=== PATIENT | female | born 1990 | race Hispanic/Latino ===

== ENCOUNTER 2025-04-13 11:36 | Emergency (ER) | payer OTHER, SELFPAY ==
[2025-04-13 11:42] VITALS: BP 123/77; PULSE 98; RESP 20; TEMP 36.4; O2SAT 97; BMI 33.3
--- NOTE | 2025-04-13 11:52 | DI.CT.S_ITS ---
PROCEDURE: CT ABDOMEN PELVIS WO CON INDICATIONS: R flank pain TECHNIQUE: CT of the abdomen and pelvis was obtained without intravenous contrast. Coronal and sagittal reformats were performed. For radiation dose reduction, the following was used: automated exposure control, adjustment of mA and/or kV according to patient size. COMPARISON: [facility], CT, CT KUB, 12/12/2023, 0:10. FINDINGS: Image quality: Diagnostic. Lower Chest: No significant findings. ABDOMEN: Liver: No contour-deforming mass. Hepatic steatosis. Gallbladder: No radiopaque gallstones or wall thickening. Biliary ducts: No biliary dilation. Pancreas: No ductal dilation. Spleen: Size is within normal limits. Adrenal Glands: No adrenal nodules. Kidneys and Ureters: Bilateral renal atrophy. Atrophic appearing right pelvic transplant. Small stone within the right kidney, unchanged. 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 Punctate nonobstructing stone. No evidence of obstruction. Stomach and Bowel: Normal colonic caliber, without significant wall thickening. The appendix is normal. Peritoneum: No abnormal intraperitoneal fluid. No free air. Ventral Wall: No significant hernia. Abdominal Nodes: No retroperitoneal or mesenteric adenopathy by size criteria. Vessels: Aorta and inferior vena cava are normal in size. PELVIS: Pelvic Organs: Unremarkable. Bladder: Unremarkable. Pelvic Nodes: No enlarged lymph nodes. Miscellaneous: No inguinal hernias are seen. Bones: No aggressive osseous abnormality. Stable appearance of right iliac lucent lesion. IMPRESSION: 1. Atrophied [place] and right transplant kidneys, stable. 2. Calcification in the right pelvic transplanted kidney likely reflecting small stone without hydronephrosis, unchanged from comparison and 2023. 3. Transplanted left pelvic kidney with punctate stone without hydronephrosis. 4. Hepatic steatosis Dictated by: Raymond Merritt M.D. on 04/13/2025 at 11:40 Approved by: Raymond Merritt M.D. on 04/13/2025 at 11:49
[2025-04-13 12:06] LABS: Appearance Urine UA CLEAR; Bilirubin Urine UA NEGATIVE (NEGATIVE); Color Urine UA YELLOW; Glucose Urine UA 3+ g/dL (Negative); Ketones Urine UA NEGATIVE (NEGATIVE); Leukocyte Esterase Urine UA NEGATIVE (NEGATIVE); Nitrite Urine UA NEGATIVE (Negative); Occult Blood Urine UA NEGATIVE (Negative); Protein Urine UA NEGATIVE (Negative); Specific Gravity Urine UA 1.020 (1.000-1.035); Urobilinogen Urine UA 0.2 E.U./dL (0.2)
[2025-04-13 12:14] LABS: Culture Indicated Urine Cult Not Indicated; pH Urine UA 6.0 (4.5-8.0)
[2025-04-13 12:17] LABS: Add Manual Diff / Slide Review NO; Hematocrit 42.2 % (36-46); Hemoglobin 15.1 g/dL (12.0-16.0); Lymphocytes Absolute Auto 2800 /uL (1100-4500); Mean Corpuscular HGB Conc 35.9 % (30-36); Mean Corpuscular Hemoglobin 32.5 PG (26-34); Mean Corpuscular Volume 90.5 fL (80-100); Platelet Count 203 X10^3/uL (150-400)
[2025-04-13 12:25] LABS: Base Excess VBG -2.0 mmol/L (0-4); HCO3 VBG 23 mmol/L (24-28); Oxygen Saturation VBG 67 % (70-75); PCO2 VBG 40.3 mmHg (45-50); PO2 VBG 36 mmHg (35-45); Total CO2 VBG 22 mmol/L (24-29); pH VBG 7.37 (7.33-7.43)
[2025-04-13] MEDS: SODIUM CHLORIDE 0.9% 1,000 ML 1000 ML IV (12:26)
[2025-04-13 12:29] LABS: Alanine Aminotransferase 98 IU/L (<35); Albumin 4.0 g/dL (3.5-5.0); Albumin Globulin Ratio 1.3 (1.0-2.8); Alkaline Phosphatase 97 U/L (38-126); Blood Urea Nitrogen 15 mg/dL (7-17); Calcium 9.4 mg/dL (8.4-10.2); Carbon Dioxide 24 mmol/L (22-32); Chloride 97 mmol/L (98-107); Estimated Glomerular Filt Rate > 60 mL/min (>60); Globulin 3.1 g/dL (1.7-4.1); HEMOLYSIS < 15 (0-50); Lipase 78 U/L (23-300); Potassium 3.9 mmol/L (3.4-5.1); Sodium 132 mmol/L (137-145); Total Protein 7.1 g/dL (6.3-8.2)
[2025-04-13 12:33] LABS: Glucose 489 mg/dL (70-99)
[2025-04-13 13:19] LABS: Ketones (Beta-Hydroxybutyrate) 0.10 mmol/L (<0.27)
[2025-04-13 13:43] VITALS: BP 141/96; PULSE 90; RESP 16; O2SAT 97
--- NOTE | 2025-04-13 15:12 | ED_ITS ---
HPI - General Adult General Chief complaint: Abdominal Pain Stated complaint: Severe R Abd Pain Time Seen by Provider: 04/13/25 11:42 Source: patient Mode of arrival: Ambulatory History of Present Illness HPI narrative: 4-year-old woman with a history of renal failure post 2 transplants, history of seizure, hypertension or diabetes but she is too afraid of needles to actually check any blood sugars who presents with right flank pain. She isn't sure which side her functioning transplanted kidney is on currently. She has not been having any dysuria or fevers. Pain has been intermittently present for the last 4 days. She has a left upper extremity fistula for dialysis use that is not currently being used. He is not complaining of shortness of breath no lower extremity edema, no palpitations or chest pain Related Data Allergies Allergy/AdvReac Type Severity Reaction Status Date / Time No Known Allergies Allergy Mild Verified 04/13/25 11:43 Review of Systems Review of Systems Narrative: Pertinent positive and negative findings as per HPI Patient History Medical History (Updated 04/13/25 @ 16:19 by Elvira Serrano MD) Hypertension Diabetes Renal failure Surgical History (Updated 04/13/25 @ 15:44 by Elvira Serrano MD) Renal transplant, status post Smoking Status: Never smoker Exam Initial Vital Signs Initial Vital Signs: Vital Signs Temperature 97.6 F 04/13/25 11:42 Pulse Rate 98 H 04/13/25 11:42 Respiratory Rate 20 04/13/25 11:42 Blood Pressure 123/77 04/13/25 11:42 Pulse Oximetry 97 04/13/25 11:42 Oxygen Delivery Method Room Air 04/13/25 11:42 General: Healthy appearing, in no acute distress. Able to give a complete and coherent history. Well-nourished well-developed HEENT: Moist mucous membranes, normal sclera with reactive pupils, Respiratory: Lungs are clear to auscultation, no wheezing no rales no rhonchi. Full and symmetrical air movement Cardiac: Regular rate and rhythm no murmurs no bruits Abdomen: Soft, no reproducible pain. Abdomen is nontender, no trans abnormalities the suprapubic tenderness Skin: Warm and dry, no rashes Neurologic: Grossly neurologically intact with no obvious asymmetries or abnormalities Extremities: No trauma, well perfused Psych: Cooperative, appropriate insight and affect Course Orders Ordered: ED Orders 04/13/25 11:52 CT abdomen pelvis wo con Stat 04/13/25 11:55 Urinalysis and Microscopic Stat 04/13/25 11:59 Venous Blood Gas STAT 04/13/25 12:08 Complete Blood Count AUTO DIFF Stat Comprehensive Metabolic Panel Stat Ketones (Beta-Hydroxybutyrate) Stat Lipase Stat 04/13/25 12:21 Venous Blood Gas Routine Discontinued Medications Sodium Chloride (Normal Saline 0.9%) 1,000 mls @ 1,000 mls/hr IV BOLUS ONE Stop: 04/13/25 13:12 Last Infusion: 04/13/25 13:36 Dose: Infused Documented By: Admin: 04/13/25 12:26 Dose: 1,000 mls/hr Documented By: YECENIA Vital Signs Vital signs: Vital Signs - 8 hr 04/13/25 11:42 04/13/25 13:43 04/13/25 15:36 Temperature 97.6 F Pulse Rate 98 H 90 88 Respiratory Rate 20 16 16 Blood Pressure 123/77 141/96 H 135/96 H Pulse Oximetry 97 97 98 Oxygen Delivery Method Room Air Room Air Room Air Medical Decision Making Lab Data 04/13/25 12:08 04/13/25 12:08 Labs: Lab Results 04/13/25 04/13/25 04/13/25 Range/Units 11:55 12:08 12:21 WBC 8.1 (4.5-11.0) X10^3/uL RBC 4.67 (4.0-5.2) X10^6/uL Hgb 15.1 (12.0-16.0) g/dL Hct 42.2 (36-46) % MCV 90.5 (80-100) fL MCH 32.5 (26-34) PG MCHC 35.9 (30-36) % RDW 12.6 (11.6-14.8) % Plt Count 203 (150-400) X10^3/uL Neut % (Auto) 52.6 (50-75) % Lymph % (Auto) 35.0 (25-40) % [place] % (Auto) 8.0 (3-14) % Eos % (Auto) 3.2 (2-4) % Baso % (Auto) 1.2 (0-2) % Neut # (Auto) 4300 (1896-6218) /uL Lymph # (Auto) 2800 (5928-3537) /uL [place] # (Auto) 600 (0-900) /uL Eos # (Auto) 300 (0-450) /uL Baso # (Auto) 100 (0-100) /uL VBG pH 7.37 (7.33-7.43) VBG pCO2 40.3 L (45-50) mmHg VBG pO2 36 (35-45) mmHg VBG HCO3 23 L (24-28) mmol/L VBG Total CO2 22 L (24-29) mmol/L VBG O2 Saturation 67 L (70-75) % VBG Base Excess -2.0 L (0-4) mmol/L FiO2 % 21.0 % % Sodium 132 L (137-145) mmol/L Potassium 3.9 (3.4-5.1) mmol/L Chloride 97 L (98-107) mmol/L Carbon Dioxide 24 (22-32) mmol/L BUN 15 (7-17) mg/dL Creatinine 0.82 (0.52-1.04) mg/dL Estimated GFR > 60 (>60) mL/min BUN/Creatinine Ratio 18.3 (6-22) Glucose 489 H* (70-99) mg/dL POC Whole Bld Glucose (70-99) mg/dL Calcium 9.4 (8.4-10.2) mg/dL Total Bilirubin 0.7 (0.2-1.3) mg/dL AST 59 H (14-36) IU/L ALT 98 H (<35) IU/L Alkaline Phosphatase 97 (38-126) U/L Total Protein 7.1 (6.3-8.2) g/dL Albumin 4.0 (3.5-5.0) g/dL Globulin 3.1 (1.7-4.1) g/dL Albumin/Globulin Ratio 1.3 (1.0-2.8) Lipase 78 (23-300) U/L Urine Color Yellow Urine Appearance Clear Urine pH 6.0 (4.5-8.0) Ur Specific [place] 1.020 (1.000-1.035) Urine Protein Negative (Negative) Urine Glucose (UA) 3+ H (Negative) g/dL Urine Ketones Negative (NEGATIVE) Urine Occult Blood Negative (Negative) Urine Nitrate Negative (Negative) Urine Bilirubin Negative (NEGATIVE) Urine Urobilinogen 0.2 (0.2) E.U./dL Ur Leukocyte Esterase Negative (NEGATIVE) Urine RBC None seen (0-5/HPF) Urine WBC 0-1/hpf (0-5/HPF) Ur Squamous Epith Cells 1-5 /hpf (0-5/HPF) Urine Bacteria None seen (None) Ur Culture Indicated? Cult not indicated Vol Urine Centrifuged 10ml (spun) Ketones 0.10 (<0.27) mmol/L 04/13/25 Range/Units 13:31 WBC (4.5-11.0) X10^3/uL RBC (4.0-5.2) X10^6/uL Hgb (12.0-16.0) g/dL Hct (36-46) % MCV (80-100) fL MCH (26-34) PG MCHC (30-36) % RDW (11.6-14.8) % Plt Count (150-400) X10^3/uL Neut % (Auto) (50-75) % Lymph % (Auto) (25-40) % [place] % (Auto) (3-14) % Eos % (Auto) (2-4) % Baso % (Auto) (0-2) % Neut # (Auto) (3342-9020) /uL Lymph # (Auto) (1021-4445) /uL [place] # (Auto) (0-900) /uL Eos # (Auto) (0-450) /uL Baso # (Auto) (0-100) /uL VBG pH (7.33-7.43) VBG pCO2 (45-50) mmHg VBG pO2 (35-45) mmHg VBG HCO3 (24-28) mmol/L VBG Total CO2 (24-29) mmol/L VBG O2 Saturation (70-75) % VBG Base Excess (0-4) mmol/L FiO2 % % Sodium (137-145) mmol/L Potassium (3.4-5.1) mmol/L Chloride (98-107) mmol/L Carbon Dioxide (22-32) mmol/L BUN (7-17) mg/dL Creatinine (0.52-1.04) mg/dL Estimated GFR (>60) mL/min BUN/Creatinine Ratio (6-22) Glucose (70-99) mg/dL POC Whole Bld Glucose 383 H (70-99) mg/dL Calcium (8.4-10.2) mg/dL Total Bilirubin (0.2-1.3) mg/dL AST (14-36) IU/L ALT (<35) IU/L Alkaline Phosphatase (38-126) U/L Total Protein (6.3-8.2) g/dL Albumin (3.5-5.0) g/dL Globulin (1.7-4.1) g/dL Albumin/Globulin Ratio (1.0-2.8) Lipase (23-300) U/L Urine Color Urine Appearance Urine pH (4.5-8.0) Ur Specific [place] (1.000-1.035) Urine Protein (Negative) Urine Glucose (UA) (Negative) g/dL Urine Ketones (NEGATIVE) Urine Occult Blood (Negative) Urine Nitrate (Negative) Urine Bilirubin (NEGATIVE) Urine Urobilinogen (0.2) E.U./dL Ur Leukocyte Esterase (NEGATIVE) Urine RBC (0-5/HPF) Urine WBC (0-5/HPF) Ur Squamous Epith Cells (0-5/HPF) Urine Bacteria (None) Ur Culture Indicated? Vol Urine Centrifuged Ketones (<0.27) mmol/L Point of Care Testing Test Results Negative Glucose POC 346 Point of care testing: Point of Care Testing Test Results Negative Glucose POC [address] scan - abdomen/pelvis: Radiologist's Impression: PROCEDURE: CT ABDOMEN PELVIS WO CON INDICATIONS: R flank pain TECHNIQUE: CT of the abdomen and pelvis was obtained without intravenous contrast. Coronal and sagittal reformats were performed. For radiation dose reduction, the following was used: automated exposure control, adjustment of mA and/or kV according to patient size. COMPARISON: [facility], CT, CT KUB, 12/12/2023, 0:10. FINDINGS: Image quality: Diagnostic. Lower Chest: No significant findings. ABDOMEN: Liver: No contour-deforming mass. Hepatic steatosis. Gallbladder: No radiopaque gallstones or wall thickening. Biliary ducts: No biliary dilation. Pancreas: No ductal dilation. Spleen: Size is within normal limits. Adrenal Glands: No adrenal nodules. Kidneys and Ureters: Bilateral renal atrophy. Atrophic appearing right pelvic transplant. Small stone within the right kidney, unchanged. 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 Punctate nonobstructing stone. No evidence of obstruction. Stomach and Bowel: Normal colonic caliber, without significant wall thickening. The appendix is normal. Peritoneum: No abnormal intraperitoneal fluid. No free air. Ventral Wall: No significant hernia. Abdominal Nodes: No retroperitoneal or mesenteric adenopathy by size criteria. Vessels: Aorta and inferior vena cava are normal in size. PELVIS: Pelvic Organs: Unremarkable. Bladder: Unremarkable. Pelvic Nodes: No enlarged lymph nodes. Miscellaneous: No inguinal hernias are seen. Bones: No aggressive osseous abnormality. Stable appearance of right iliac lucent lesion. IMPRESSION: 1. Atrophied [place] and right transplant kidneys, stable. 2. Calcification in the right pelvic transplanted kidney likely reflecting small stone without hydronephrosis, unchanged from comparison and 2023. 3. Transplanted left pelvic kidney with punctate stone without hydronephrosis. 4. Hepatic steatosis Dictated by: Raymond Merritt M.D. on 04/13/2025 at 11:40 MDM Narrative Medical decision making narrative: CC: Right flank pain Complicating co-morbidities: Renal failure, currently with the renal transplant this is her 2nd, diabetes, hypertension Data collected from: patient Medical records reviewed: Medical records from [facility] are reviewed Medications include insulin, labetalol, Keppra, lisinopril, Glucophage, CellCept, 5 mg of prednisone daily, Prograf Differential considered: Transplant abnormality, constipation, bowel obstruction, Exam documented above, pertinent findings include: Exam is fairly benign. She does not have reproducible pain in the right side of her abdomen or right flank Lab Test results independently reviewed as above. Pertinent findings: CBC is unremarkable, she is not anemic Chemistries are reassuring. Creatinine is 0.82. Initial glucose was 489, on repeat after a L of fluid was down to 346 Minimally elevated AST and ALT similar to 5 months ago Urine is unremarkable Imaging studies independently reviewed: CT scan of the abdomen and pelvis shows chronic findings with her [place] as well as transplanted kidneys with nonobstructive stones appreciated she is not significantly constipated there was no bowel obstruction or other significant pathology appreciated Treatments: 1 L of saline Discussion: 34-year-old woman with kidney failure, on her 2nd renal transplant, poorly controlled diabetes because she is afraid of needles after long time with hemodialysis, presents with right flank pain. No fevers or chills. Workup is unremarkable. CT scan of the abdomen shows no acute pathology to explain her symptoms. Symptoms are essentially resolved after a L of fluid. We did briefly talk about better control of her diabetes. She has not been able to get [employer] approval for a continuous glucose monitor. 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 Had a long discussion regarding primary insurance and secondary insurance. At this point she has double coverage with her [employer] insurance being the secondary. She was quite pleased. Suggested she show her insurance card to our registration desk on the way out and make sure that she let the pharmacy know she has this primary insurance that will offer for better coverage. She was quite excited and will follow through with trying to get a continuous glucose monitor. She has a new appointment with her primary care physician, prior 1 has moved out of the community, within the next week or 2. There is no indication for hospitalization she is safe for discharge Discharge Plan Departure Patient Disposition: Home Clinical Impression: Acute flank pain, Diabetes Instructions: DI for Flank Pain Activity Restrictions/Additional Instructions: Thank you for coming in today I do not have an explanation for the pain that you are experiencing. There was no sign of kidney infection, new kidney stones that are causing any problems, bowel obstruction, significant constipation, gallbladder issues or other findings that would require further workup today. Often when we can not find an alternative explanation, the most likely explanation ends up being muscle/bone or skeletal type pain. Regarding your diabetes, it is absolutely legitimate to be afraid of needles however you need to control your diabetes with your transplant kidney. With your insurance through the school district, you need to consider this your primary insurance. This is the insurance card that you need to show everybody. This insurance is very good insurance and will absolutely pay for continuous glucose monitor in somebody who already has a kidney transplant. Make sure you show this card to our registration desk on the way out so it is listed as your primary insurance for this visit, to your primary care doctor when you see her next and take it physically into your pharmacy and have them fill the prescription for the glucose monitor using this insurance instead of the [employer] insurance If you find that you are getting worse or develop any new symptoms, please feel free to return to the emergency department for further evaluation. Stand Alone Forms: Patient Portal/API
[2025-04-13 15:36] VITALS: BP 135/96; PULSE 88; RESP 16; O2SAT 98
== END 2025-04-13 16:23 | disposition home or self-care (01) ==
PROVIDERS: Emergency Provider Emergency Medicine
DX: R10.9 Unspecified abdominal pain (principal); E11.9 Type 2 diabetes mellitus without complications; I10 Essential (primary) hypertension; Z94.0 Kidney transplant status
CPT/HCPCS: 36415; 74176; 80053; 81001; 81025; 82009; 82805; 82962; 83690; 85025; 96360; 99284

== ENCOUNTER 2025-08-31 21:12 | Emergency (ER) | payer OTHER, SELFPAY ==
--- OUTSIDE RECORDS SUMMARY | 2025-08-31 21:18 | XMS_ITS | Encounter Summary ---
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 Name Role Phone Pcp, None Selected Primary Care Provider Unavail able Encounter Details Date Type Department Care Team (Late st Contact Info) Description 01/22/2018 Orders Only [facility] Nephrology [address], [address] [place] [address] Viri Mendoza RN Social History Tobacco Use Types Packs/Day Years Used Date Smoking Tobacco: Former Smokeless Tobacco: Never Alcohol Use Standard Drinks/Week Comments No 0 (1 standard drink = 0.6 oz pur e alcohol) Comments Unknown Sex and Gender Information Value Date Recorded Sex Assigned at Female 03/11/2022 3:16 PM PDT Legal Sex Female 7:59 PM PDT Gender Identity Female 05/07/2020 10:22 AM PDT Sexual Orientation Straight 03/11/2022 3: 16 PM PDT documented as of this encounter Plan of Treatment Upcoming Encounters Date Type Department Care Team (Late st Contact Info) Description 10/17/2025 4:00 PM PST Office Visit [facility] [place] [address], [address] [place] [address] Kamlesh Tobias MD [address] [place] [address] documented as of this encounter Visit Diagnoses Not on filedocumented in this encounter Additional Health Concerns Infection Onset Date Last Indicated Resolved Time COV19 CONFIRMED/AERO Comment:Positive COVID-19 test 01/29. Test completed at community testing site. 01/29/2021 02/04/2021 04/01/2021 2:36 AM P DT R/O COV19/AERO 02/06/2021 02/06/2021 02/08/2021 9: 22 AM PDT documented as of this encounter Care Teams Liquid Waste Treatment Plant Operator Relationship Specialty Start Date End Date Pcp, None Selected PCP - General 12/19/24 documented as of this encounter
[2025-08-31 21:43] VITALS: BP 107/75; PULSE 85; RESP 16; TEMP 36.5; O2SAT 98; BMI 31.7
--- NOTE | 2025-08-31 22:04 | ED.GENADULT ---
HPI - General Adult General Chief complaint: Abdominal Pain Stated complaint: Burning on rt stomach going into back Time Seen by Provider: 08/31/25 21:24 Source: patient Mode of arrival: Ambulatory History of Present Illness HPI narrative: 35-year-old female with history of child had renal failure, on dialysis since age 7, 1st renal transplant age 11, 2nd revision renal transplant graft [facility], history of type 2 diabetes mellitus on insulin, history of urinary tract infection, history of kidney stone, complains of right-sided back pain for the last 2 days, with some frequency of urination. Denies sensation of fevers or chills. Denies nausea vomiting diarrhea. No recent antibiotics. Recent sugars at home and then 190s, reasonable control recently she believes. Not believe herself to be , denies vaginal bleeding. Denies cough, shortness of breath, chest pain. Related Data Home Medications ?Medication ?Instructions ?Recorded ?Confirmed amlodipine 5 mg tablet 5 mg PO DAILY 04/22/25 04/22/25 ergocalciferol (vitamin D2) 1,250 1,250 mcg PO 04/22/25 04/22/25 mcg (50,000 unit) capsule insulin glargine 100 unit/mL (3 unit SUBCUT 04/22/25 04/22/25 mL) subcutaneous pen (Lantus Solostar U-100 Insulin) labetalol 200 mg tablet 200 mg PO BID 04/22/25 04/22/25 levetiracetam 500 mg tablet 500 mg PO BID 04/22/25 04/22/25 lisinopril 5 mg tablet 5 mg PO DAILY 04/22/25 04/22/25 metformin 1,000 mg tablet 1,000 mg PO BID 04/22/25 04/22/25 mycophenolate mofetil 500 mg tablet 500 mg PO BID 04/22/25 04/22/25 norgestrel 0.3 mg-ethinyl 1 tab PO DAILY 04/22/25 04/22/25 estradiol 30 mcg tablet pen needle, diabetic 32 gauge x #1,200 ea 04/22/25 04/22/25 (TRUEplus Pen Needle) prednisone 5 mg tablet 5 mg PO DAILY 04/22/25 04/22/25 tacrolimus 1 mg capsule, 1 mg PO Q12H 04/22/25 04/22/25 immediate-release Allergies Allergy/AdvReac Type Severity Reaction Status Date / Time No Known Allergies Allergy Mild Verified 08/31/25 21:43 Patient History Medical History (Updated 08/31/25 @ 23:40 by Connor Larkin MD) Hypertension Diabetes Renal failure Surgical History (Updated 04/13/25 @ 15:44 by Elvira Serrano MD) Renal transplant, status post Social History Smoking Status: Never smoker Smoking Status: Never smoker Exam Narrative Exam Narrative: GENERAL: Well-developed patient, in mild distress. HEAD: Atraumatic. Normocephalic. EYES: Pupils equal round and reactive. Extraocular motions intact. No scleral icterus. No injection or drainage. ENT: Nose without bleeding, purulent drainage. Throat without erythema, tonsillar hypertrophy or exudate. Airway patent. NECK: Trachea midline. Non tender CARDIOVASCULAR: Regular rate and rhythm without murmurs, gallops, or rubs. RESPIRATORY: Clear to auscultation. Breath sounds equal bilaterally. No wheezes, rales, or rhonchi. GASTROINTESTINAL: Abdomen soft, non-tender, nondistended. EXTREMITIES: No edema or joint tenderness. BACK: Nontender without deformity or crepitance. No flank tenderness. NEURO: AOx3. Motor functions grossly nonfocal. SKIN: No rash or erythema of visible areas Initial Vital Signs Initial Vital Signs: Vital Signs Temperature 97.7 F 08/31/25 21:43 Pulse Rate 85 08/31/25 21:43 Respiratory Rate 16 08/31/25 21:43 Blood Pressure 107/75 08/31/25 21:43 Pulse Oximetry 98 08/31/25 21:43 Oxygen Delivery Method Room Air 08/31/25 21:43 Course Orders Ordered: ED Orders 08/31/25 21:56 Complete Blood Count AUTO DIFF Stat Comprehensive Metabolic Panel Stat HCG Quantitative /Beta subunit Stat Lactate (Lactic Acid) Stat Lipase Stat 08/31/25 22:11 CT abdomen pelvis wo con Stat Discontinued Medications Ondansetron HCl (Ondansetron 4 Mg/2 Ml Inj) 4 mg IV NOW PRN PRN Reason: Nausea And Vomiting Ondansetron HCl (Ondansetron 4 Mg Odt) 4 mg PO NOW PRN PRN Reason: Nausea And Vomiting Vital Signs Vital signs: Vital Signs - 8 hr 08/31/25 23:14 Pulse Rate 70 Respiratory Rate 16 Blood Pressure 127/79 Pulse Oximetry 97 Medical Decision Making Lab Data Lab results reviewed: Yes I reviewed the patient's lab results. Lab results narrative: White blood cell count 67560, hemoglobin 14.5, platelets adequate. Glucose 161. BUN 18 slight elevation, with creatinine 0.88 normal range. Normal serum CO2 in potassium. Sodium 136 slight low. Liver functions and lipase normal. Lactate 1.3 normal range. 08/31/25 21:56 08/31/25 21:56 Labs: Lab Results 08/31/25 Range/Units 21:56 WBC 14.4 H (4.5-11.0) X10^3/uL RBC 4.63 (4.0-5.2) X10^6/uL Hgb 14.5 (12.0-16.0) g/dL Hct 42.5 (36-46) % MCV 91.7 (80-100) fL MCH 31.3 (26-34) PG MCHC 34.1 (30-36) % RDW 12.6 (11.6-14.8) % Plt Count 210 (150-400) X10^3/uL Neut % (Auto) 73.6 (50-75) % Lymph % (Auto) 19.7 L (25-40) % Smith % (Auto) 5.1 (3-14) % Eos % (Auto) 1.0 L (2-4) % Baso % (Auto) 0.6 (0-2) % Neut # (Auto) 20477 H (7755-6040) /uL Lymph # (Auto) 2800 (1970-4122) /uL Smith # (Auto) 700 (0-900) /uL Eos # (Auto) 100 (0-450) /uL Baso # (Auto) 100 (0-100) /uL Sodium 136 L (137-145) mmol/L Potassium 4.2 (3.4-5.1) mmol/L Chloride 104 (98-107) mmol/L Carbon Dioxide 23 (22-32) mmol/L BUN 18 H (7-17) mg/dL Creatinine 0.88 (0.52-1.04) mg/dL Estimated GFR > 60 (>60) mL/min BUN/Creatinine Ratio 20.5 (6-22) Glucose 161 H (70-99) mg/dL Lactate 1.3 (0.7-2.1) mmol/L Calcium 9.7 (8.4-10.2) mg/dL Total Bilirubin 0.4 (0.2-1.3) mg/dL AST 24 (14-36) IU/L ALT 19 (<35) IU/L Alkaline Phosphatase 54 (38-126) U/L Total Protein 7.7 (6.3-8.2) g/dL Albumin 4.3 (3.5-5.0) g/dL Globulin 3.4 (1.7-4.1) g/dL Albumin/Globulin Ratio 1.3 (1.0-2.8) Lipase 100 (23-300) U/L HCG, Quant < 2.39 mIU/mL Urine Dip Bedside Urine Glucose Negative Bedside Urine Bilirubin - Negative Bedside Urine Ketone - Negative Urine Specific [place] 1.015 Bedside Urine Occult Blood - Negative Bedside Urine pH 6 Bedside Urine Protein - Negative Bedside Urine Urobilinogen - Negative Bedside Urine Nitrite - Negative Bedside Urine Leukocytes - Negative Esterase Point of care testing: Urine Dip Bedside Urine Glucose Negative Bedside Urine Bilirubin - Negative Bedside Urine Ketone - Negative Urine Specific [place] 1.015 Bedside Urine Occult Blood - Negative Bedside Urine pH 6 Bedside Urine Protein - Negative Bedside Urine Urobilinogen - Negative Bedside Urine Nitrite - Negative Bedside Urine Leukocytes - Negative Esterase Imaging Data CT scan - abdomen/pelvis: Radiologist's Impression: [place] [address] CT Scan Report Signed Patient: Klaudia Luevano MR#: [id number] : 1990 Acct:[id number] Age/Sex: 35 / F Date of Service: 08/31/25 Loc: ED Accession Number: [id number] Procedure: CT abdomen pelvis wo con Ordering Provider: Connor Larkin MD PROCEDURE: CT ABDOMEN PELVIS WO CON INDICATIONS: RLQ abd pain, has appy, hx renal transplant TECHNIQUE: CT of the abdomen and pelvis was obtained without intravenous contrast. Coronal and sagittal reformats were performed. For radiation dose reduction, the following was used: automated exposure control, adjustment of mA and/or kV according to patient size. COMPARISON: [facility], CT, CT ABDOMEN PELVIS WO CON, 04/13/2025, 12:14. FINDINGS: Image quality: Diagnostic. Lower Chest: No significant findings. ABDOMEN: Liver: No contour-deforming mass. Mild steatosis. Gallbladder: No radiopaque gallstones or wall thickening. Biliary ducts: No biliary dilation. Pancreas: No ductal dilation. Spleen: Size is within normal limits. Adrenal Glands: No adrenal nodules. Kidneys and Ureters: [place] kidneys are markedly atrophic. Left lower quadrant renal transplant is present without obstruction. Punctate parenchymal calcification, unchanged. Atrophic appearance of presumed right lower quadrant renal transplant. Calcifications remain present without obstruction. Stomach and Bowel: Normal colonic caliber, without significant wall thickening. Appendix is not visualized. Peritoneum: Trace dependent pelvic fluid. No free air. Ventral Wall: No significant hernia. Abdominal Nodes: No retroperitoneal or mesenteric adenopathy by size criteria. Vessels: Aorta and inferior vena cava are normal in size. PELVIS: Pelvic Organs: Unremarkable. Bladder: Unremarkable. Pelvic Nodes: No enlarged lymph nodes. Miscellaneous: No inguinal hernias are seen. Bones: No aggressive osseous abnormality. IMPRESSION: Stable interval exam demonstrating transplanted kidneys without obstruction. No inflammatory change within the abdomen or pelvis. Dictated by: Ashley Brewer M.D. on 08/31/2025 at 22:59 Approved by: Ashley Brewer M.D. on 08/31/2025 at 23:02 [facility] Narrative Medical decision making narrative: 35-year-old female with history of renal transplantation on chronic immunosuppressive therapy, history of kidney stones, history of UTI, has painful frequent urination last couple of days, afebrile, sirs screen negative. Right-sided abdominal pain. DDx consider UTI, obstructing stone, appendicitis, colitis, diverticulitis, [employer] etiology, musculoskeletal, renal transplant graft rejection, other. Lab data: White blood cell count 72583, hemoglobin 14.5, platelets adequate. Glucose 161. BUN 18 slight elevation, with creatinine 0.88 normal range. Normal serum CO2 in potassium. Sodium 136 slight low. Liver functions and lipase normal. Lactate 1.[address] abdomen and pelvis showed no acute process, renal transplantation stable. See radiology report. Urine not convincing for infection. Discussed ultrasound pelvis, patient declined. Advised to take Tylenol as needed for discomfort. Follow up with PCP advised if not improving in the next couple of days. Return precautions discussed. Discharged home Discharge Plan Departure Patient Disposition: Home Clinical Impression: Abdominal pain Activity Restrictions/Additional Instructions: History of kidney transplantation, right-sided abdominal discomfort of unclear etiology. No fever on triage. Urinalysis dip negative for an obvious infection. Urine test negative. CT scanning abdomen and pelvis showed presence of your kidney transplant graft, which looked to be in good condition without obvious obstructive or acute changes. There were no other acute changes in the abdomen or pelvis on imaging study. We did discuss additional imaging such as ultrasound of the pelvis, declined for now. Take Tylenol as needed for discomfort. Recheck with your regular doctor if symptoms are persisting in the next couple of days. Return to this/nearest emergency department for any change worsening symptoms or any concerns prior. Prescriptions: No Action labetalol 200 mg tablet 200 mg PO BID levetiracetam 500 mg tablet 500 mg PO BID amlodipine 5 mg tablet 5 mg PO DAILY lisinopril 5 mg tablet 5 mg PO DAILY ergocalciferol (vitamin D2) 1,250 mcg (50,000 unit) capsule 1,250 mcg PO insulin glargine [Lantus Solostar U-100 Insulin] 100 unit/mL (3 mL) insulin pen SUBCUT Patient Comments: [NO ORIGINAL SIG] (DME) pen needle, diabetic [TRUEplus Pen Needle] 32 gauge x 5/32 needle See Rx Instructions .ROUTE .MEDSUPPLY Qty: 1200 Patient Comments: [NO ORIGINAL SIG] Rx Instructions: As directed norgestrel-ethinyl estradiol 0.3-30 mg-mcg tablet 1 tab PO DAILY prednisone 5 mg tablet 5 mg PO DAILY mycophenolate mofetil 500 mg tablet 500 mg PO BID metformin 1,000 mg tablet 1,000 mg PO BID tacrolimus 1 mg capsule 1 mg PO Q12H Referrals: Miscellaneous,Doctor, [Primary Care Provider, Medical] Stand Alone Forms: Patient Portal/API
[2025-08-31 22:05] LABS: Add Manual Diff / Slide Review NO; Hematocrit 42.5 % (36-46); Hemoglobin 14.5 g/dL (12.0-16.0); Lymphocytes Absolute Auto 2800 /uL (1100-4500); Mean Corpuscular HGB Conc 34.1 % (30-36); Mean Corpuscular Hemoglobin 31.3 PG (26-34); Mean Corpuscular Volume 91.7 fL (80-100); Platelet Count 210 X10^3/uL (150-400)
--- NOTE | 2025-08-31 22:11 | DI.CT.S_ITS ---
PROCEDURE: CT ABDOMEN PELVIS WO CON INDICATIONS: RLQ abd pain, has appy, hx renal transplant TECHNIQUE: CT of the abdomen and pelvis was obtained without intravenous contrast. Coronal and sagittal reformats were performed. For radiation dose reduction, the following was used: automated exposure control, adjustment of mA and/or kV according to patient size. COMPARISON: [facility], CT, CT ABDOMEN PELVIS WO CON, 04/13/2025, 12:14. FINDINGS: Image quality: Diagnostic. Lower Chest: No significant findings. ABDOMEN: Liver: No contour-deforming mass. Mild steatosis. Gallbladder: No radiopaque gallstones or wall thickening. Biliary ducts: No biliary dilation. Pancreas: No ductal dilation. Spleen: Size is within normal limits. Adrenal Glands: No adrenal nodules. Kidneys and Ureters: [place] kidneys are markedly atrophic. Left lower quadrant renal transplant is present without obstruction. Punctate parenchymal calcification, unchanged. Atrophic appearance of presumed right lower quadrant renal transplant. Calcifications remain present without obstruction. Stomach and Bowel: Normal colonic caliber, without significant wall thickening. Appendix is not visualized. Peritoneum: Trace dependent pelvic fluid. No free air. Ventral Wall: No significant hernia. Abdominal Nodes: No retroperitoneal or mesenteric adenopathy by size criteria. Vessels: Aorta and inferior vena cava are normal in size. PELVIS: Pelvic Organs: Unremarkable. Bladder: Unremarkable. Pelvic Nodes: No enlarged lymph nodes. Miscellaneous: No inguinal hernias are seen. Bones: No aggressive osseous abnormality. IMPRESSION: Stable interval exam demonstrating transplanted kidneys without obstruction. No inflammatory change within the abdomen or pelvis. Dictated by: Ashley Brewer M.D. on 08/31/2025 at 22:59 Approved by: Ashley Brewer M.D. on 08/31/2025 at 23:02
[2025-08-31 22:24] LABS: Alanine Aminotransferase 19 IU/L (<35); Albumin 4.3 g/dL (3.5-5.0); Albumin Globulin Ratio 1.3 (1.0-2.8); Alkaline Phosphatase 54 U/L (38-126); Blood Urea Nitrogen 18 mg/dL (7-17); Calcium 9.7 mg/dL (8.4-10.2); Carbon Dioxide 23 mmol/L (22-32); Chloride 104 mmol/L (98-107); Estimated Glomerular Filt Rate > 60 mL/min (>60); Globulin 3.4 g/dL (1.7-4.1); Glucose 161 mg/dL (70-99); HEMOLYSIS 18 (0-50); Lactate (Lactic Acid) 1.3 mmol/L (0.7-2.1); Lipase 100 U/L (23-300); Potassium 4.2 mmol/L (3.4-5.1); Sodium 136 mmol/L (137-145); Total Protein 7.7 g/dL (6.3-8.2)
--- NOTE | 2025-08-31 22:29 | PC.NURSE ---
pt declined urine preg test prior tp CT imaging -- pt denies chance of , and reports currently on menstrual cycle
[2025-08-31 23:14] VITALS: BP 127/79; PULSE 70; RESP 16; O2SAT 97
[2025-08-31 23:30] LABS: HCG Quantitative /Beta subunit < 2.39 mIU/mL
== END 2025-08-31 23:56 | disposition home or self-care (01) ==
PROVIDERS: Student in an Organized Health Care Education/Training Program; Emergency Provider Emergency Medicine
DX: R10.9 Unspecified abdominal pain (principal); E11.9 Type 2 diabetes mellitus without complications; Z94.0 Kidney transplant status; Z79.621 Long term (current) use of calcineurin inhibitor; Z99.2 Dependence on renal dialysis; Z79.4 Long term (current) use of insulin; Z87.442 Personal history of urinary calculi
CPT/HCPCS: 74176; 80053; 81003; 83605; 83690; 84702; 85025; 99282; 99284